=== PATIENT | female | born 1940 | race American Indian/Alaskan Native ===

== ENCOUNTER 2019-01-22 13:37 | Outpatient (CLI) | payer MEDICARE, OTHER ==
--- NOTE | 2019-01-23 08:43 | Vascular Lab Report ---
DUPLEX DOPPLER LOWER EXTREMITY VEINS, RIGHT INDICATION: PAIN/EDEMA R LEG AFTER A LONG TRIP/R60.9. TECHNIQUE: Duplex doppler imaging was performed through the veins of the right lower extremity using venous compression and other maneuvers. COMPARISON: No relevant prior imaging study available. COMMENT: This examination is just presented to me for interpretation due to technical factors at the hospital. FINDINGS: Right Common femoral vein: Negative. Right Superficial femoral vein: Negative. Right Popliteal vein: Negative. Right Calf veins: Negative. Additional findings: There is a relatively simple anechoic fluid collection in the right popliteal fo ssa measuring 4.4 x 2.2 x 4.3 cm.. IMPRESSION: No sonographic evidence for DVT in the right lower extremity. Popliteal cyst. Signer Name: Thiago Barker Jr, MD Signed: 01/23/2019 8:39 AM Workstation Name: [id number]
== END 2019-01-22 13:38 | disposition home or self-care (01) ==
LOC: VAS 13:37
PROVIDERS: ATTEND Family Medicine
DX: R60.9 Edema, unspecified (principal)